=== PATIENT | female | born 1935 | race Caucasian/White ===

== ENCOUNTER 2022-07-02 16:24 | Observation (INO) ==
[2022-07-02] MEDS ORDERED: 0.9 % Sodium Chloride 500 ML IVC ONE (17:18)
[2022-07-02 17:54] LABS: Basophils # 0.1 K/mcL (0.0-0.2); Basophils % 0.6 %; Eosinophils # 0.2 K/mcL (0.0-0.6); Eosinophils % 2.1 %; Hemoglobin 10.6 g/dL (11.5-15.4); Immature Granulocytes % 0.4 % (0-4); Lymphocytes # 1.5 K/mcL (0.6-4.6); Lymphocytes % 15.5 %; Mean Corpuscular HGB Conc 31.2 g/dL (31.6-35.5); Mean Corpuscular Hemoglobin 25.5 pg (28.0-33.3); Mean Corpuscular Volume 81.9 fL (83.0-100.0); Mean Platelet Volume 10.3 fL (9.4-12.4); Monocytes # 0.9 K/mcL (0.0-1.3); Neutrophils # 6.8 K/mcL (1.6-8.9); Platelet Count 222 K/mcL (140-400); Red Blood Count 4.15 M/mcL (3.82-4.97); Red Cell Distribution Width 16.3 % (11.5-14.5); Segmented Neutrophils % 72.4 %; White Blood Count 9.4 K/mcL (4.3-11.1)
[2022-07-02 18:01] LABS: INR 1.5; Prothrombin Time 17.2 Seconds (9.4-12.1)
[2022-07-02 18:04] LABS: Activated Partial Thrombo Time 32.5 Seconds (26.0-36.0)
[2022-07-02 18:17] LABS: Calcium 9.5 mg/dL (8.6-10.3); Potassium 3.4 mEq/L (3.5-5.1); Troponin I 0.04 ng/mL (< 0.04)
[2022-07-02] MEDS ORDERED: Ondansetron 4 MG/2 ML VIAL IVP PRN (19:43)
[2022-07-02] MEDS ORDERED: Naloxone 0.4 MG/ML INJ IVP PRN (19:43)
[2022-07-02] MEDS ORDERED: Acetaminophen 325 MG TABLET PO PRN (19:43)
[2022-07-02] MEDS ORDERED: *HR* Promethazine 25 MG/ML VIAL IM PRN (19:43)
[2022-07-02] MEDS: Apixaban 5 MG TABLET PO SCH (21:28)
[2022-07-02] MEDS: Melatonin 3 MG TABLET PO PRN (21:28)
[2022-07-02] MEDS ORDERED: *HR* Labetalol 20 MG/4 ML SYRINGE IVP PRN (22:05)
[2022-07-03 02:58] LABS: Basophils # 0.1 K/mcL (0.0-0.2); Basophils % 0.7 %; Eosinophils # 0.4 K/mcL (0.0-0.6); Eosinophils % 5.2 %; Hematocrit 28.6 % (35.3-44.9); Immature Granulocytes % 0.4 % (0-4); Lymphocytes # 1.4 K/mcL (0.6-4.6); Lymphocytes % 20.8 %; Mean Corpuscular HGB Conc 31.1 g/dL (31.6-35.5); Mean Corpuscular Hemoglobin 25.5 pg (28.0-33.3); Mean Corpuscular Volume 81.9 fL (83.0-100.0); Mean Platelet Volume 10.4 fL (9.4-12.4); Monocytes # 0.8 K/mcL (0.0-1.3); Monocytes % 11.6 %; Neutrophils # 4.2 K/mcL (1.6-8.9); Platelet Count 181 K/mcL (140-400); Red Blood Count 3.49 M/mcL (3.82-4.97); Red Cell Distribution Width 16.5 % (11.5-14.5); Segmented Neutrophils % 61.3 %; White Blood Count 6.9 K/mcL (4.3-11.1)
[2022-07-03 03:01] LABS: INR 1.7; Prothrombin Time 18.6 Seconds (9.4-12.1)
[2022-07-03 03:15] LABS: Hemoglobin 8.9 g/dL (11.5-15.4)
[2022-07-03 03:18] LABS: Magnesium 2.1 mg/dL (1.6-2.6); Phosphorous 3.7 mg/dL (2.7-4.5); Potassium 3.4 mEq/L (3.5-5.1); Troponin I 0.03 ng/mL (< 0.04)
[2022-07-03 10:16] LABS: Thyroid Stimulating Hormone 0.282 mcIU/mL (0.340-5.600)
[2022-07-03 10:34] LABS: Folate > 22.3 ng/mL (3.0-16.0); Vitamin B12 263 pg/mL (250-1100)
[2022-07-03] MEDS: lisinopriL 20 MG TABLET PO SCH (10:58)
[2022-07-03] MEDS: Apixaban 5 MG TABLET PO SCH ×2 (11:03→20:55)
[2022-07-03] MEDS ORDERED: Iron Sucrose Complex 400 MG in 0.9 % Sodium Chloride 250 ML IVPB ONE (11:28)
[2022-07-04 05:01] LABS: Hematocrit 31.2 % (35.3-44.9); Hemoglobin 9.5 g/dL (11.5-15.4)
[2022-07-04] MEDS: lisinopriL 20 MG TABLET PO SCH (07:43)
[2022-07-04] MEDS: Apixaban 5 MG TABLET PO SCH ×2 (07:44→19:58)
[2022-07-04] MEDS: Melatonin 3 MG TABLET PO PRN (19:58)
[2022-07-05] MEDS: Apixaban 5 MG TABLET PO SCH ×2 (08:14→21:15)
[2022-07-05] MEDS: lisinopriL 20 MG TABLET PO SCH (08:15)
[2022-07-05] MEDS: Sennosides/Docusate Sodium TABLET PO SCH ×2 (08:15→21:15)
[2022-07-05] MEDS: Melatonin 3 MG TABLET PO PRN (21:15)
[2022-07-06] MEDS: Sennosides/Docusate Sodium TABLET PO SCH ×2 (08:18→21:22)
[2022-07-06] MEDS: Apixaban 5 MG TABLET PO SCH ×2 (08:18→21:22)
[2022-07-06] MEDS: lisinopriL 20 MG TABLET PO SCH (08:18)
[2022-07-06] MEDS: Melatonin 3 MG TABLET PO PRN (21:21)
[2022-07-07] MEDS: Apixaban 5 MG TABLET PO SCH ×2 (08:07→21:51)
[2022-07-07] MEDS: lisinopriL 20 MG TABLET PO SCH (08:07)
[2022-07-07] MEDS: Sennosides/Docusate Sodium TABLET PO SCH ×2 (08:07→21:51)
[2022-07-07] MEDS: Melatonin 3 MG TABLET PO PRN (21:53)
[2022-07-08 03:10] LABS: Basophils # 0.1 K/mcL (0.0-0.2); Eosinophils # 0.5 K/mcL (0.0-0.6); Hematocrit 31.3 % (35.3-44.9); Hemoglobin 9.7 g/dL (11.5-15.4); Immature Granulocytes % 0.8 % (0-4); Lymphocytes # 1.8 K/mcL (0.6-4.6); Lymphocytes % 24.4 %; Mean Corpuscular Hemoglobin 26.1 pg (28.0-33.3); Mean Corpuscular Volume 84.1 fL (83.0-100.0); Mean Platelet Volume 11.3 fL (9.4-12.4); Monocytes # 0.8 K/mcL (0.0-1.3); Monocytes % 11.7 %; Platelet Count 206 K/mcL (140-400); Red Blood Count 3.72 M/mcL (3.82-4.97); Red Cell Distribution Width 17.3 % (11.5-14.5); Segmented Neutrophils % 55.1 %; White Blood Count 7.2 K/mcL (4.3-11.1)
[2022-07-08 03:28] LABS: Calcium 9.4 mg/dL (8.6-10.3); Magnesium 2.2 mg/dL (1.6-2.6); Phosphorous 4.3 mg/dL (2.7-4.5)
[2022-07-08] MEDS: Sennosides/Docusate Sodium TABLET PO SCH (08:03)
[2022-07-08] MEDS: Apixaban 5 MG TABLET PO SCH (08:03)
[2022-07-08] MEDS: lisinopriL 20 MG TABLET PO SCH (08:04)
[2022-07-08 10:48] VITALS: BP 121/73; PULSE 76; TEMP 97.7; O2SAT 95
== END 2022-07-08 15:01 ==
LOC: EMEROOARM 16:24 → 3BNU 16:24 → SUATTDRO 20:12 → 3BNU 20:35
PROVIDERS: ADMIT Internal Medicine; ATTEND Internal Medicine